=== PATIENT | female | born 1985 | race Caucasian/White ===

== ENCOUNTER → 2021-01-13 16:14 | Outpatient (CLI) | payer OTHER, BC, SELFPAY ==
--- NOTE | ~2021-01-13 | MM_ITS ---
EXAMINATION: MM screening albin BI w nicolas HISTORY: Screening TECHNIQUE: Craniocaudal and mediolateral oblique 3-D tomosynthesis images were obtained and synthetic 2-D images were generated. CAD analysis was submitted and interpreted. COMPARISON: No prior studies for comparison. BREAST PARENCHYMAL COMPOSITION: The breasts are heterogeneously dense, which may obscure small masses . FINDINGS: There is no evidence of suspicious mass, calcification, or architectural distortion to sugg est malignancy in either breast. There has been no suspicious interval change. IMPRESSION: 1. No mammographic evidence of malignancy. 2. Recommend routine screening mammography in one year. BI-RADS Category 1: Negative Reviewed, dictated and finalized at location A.
== END ==
PROVIDERS: PCP Family Medicine; Visit Provider Obstetrics & Gynecology
DX: Z12.31 Encounter for screening mammogram for malignant neoplasm of breast (principal)
CPT/HCPCS: 77063; 77067

== ENCOUNTER 2021-09-21 07:55 | Outpatient (CLI) | payer OTHER, BC, SELFPAY ==
--- NOTE | 2021-09-30 18:11 | WPDHOMESLEEP ---
Sleep Study - Home Unattended Date of Study: 09/21/21 <Angelica Vyas DO - Last Filed: 09/30/21 18:21> Ordering Provider: Nikole Chavarria NP <Angelica Vyas DO - Last Filed: 09/30/21 18:21> Interpreting Provider: Angelica Vyas DO <Angelica Vyas, DO - Last Filed: 09/30/21 18:21> Home Sleep Study Type: Watch PAT <Angelica Vyas, DO - Last Filed: 09/30/21 18:21> Height: 1.6 m <Angelica Vyas DO - Last Filed: 09/30/21 18:21> Weight: 83.007 kg <Angelica Vyas DO - Last Filed: 09/30/21 18:21> Body Mass Index: 32.4 <Angelica Vyas DO - Last Filed: 09/30/21 18:21> Neck Circumference (inches): 14.5 <Angelica Vyas DO - Last Filed: 09/30/21 18:21> [place]: 10 <Angelica Vyas DO - Last Filed: 09/30/21 18:21> Reason for Sleep Study The patient grinds her teeth and 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 Dentist is requesting an HSAT. <Angelica Vyas DO - Last Filed: 09/30/21 18:21> Sleep History The patient is a 35-year-old female with anxiety and hyperlipidemia that had her dentist request his home sleep test due to wearing out a lasting machine operator due to teeth grinding. The patient also has had unrefreshing sleep for the past 5 years. Both of her parents have sleep apnea. The patient denies awakening from sleep short of breath. She occasionally awakens at night with heartburn, belching or cough. She frequently snores and is occasionally loud enough that others complain. She constantly has trouble sleeping when she has a cold. She rarely wakes up gasping for air throughout the night. She rarely has breathing problems at night observed by others. She denies sweating excessively at night. He denies noticing heart palpitations or irregular heartbeats throughout the night. She denies falling asleep during the day and while driving. She rarely feels unable to move when waking up or falling asleep. She denies cataplexy and hypnagogic / hypnopompic hallucinations. She frequently has trouble at work due to sleepiness. She denies having night Rogers. She constantly has thoughts racing through her mind. She frequently feels sad or depressed. She constantly has anxiety. She occasionally notices parts of her body jerk. She rarely kicks during the night. She denies crawling and aching feelings in her legs as well as leg pain during the night. She constantly grinds her teeth during sleep and awakens with jaw pain in the morning. She is frequently bothered by pain during the day and rarely awakened by pain during the night. She occasionally wakes up feeling stiff in the morning with sore and achy muscles. She goes to bed at 10:30 p.m. on weekdays and between 11 p.m. and midnight on the weekends. He can take between 15 minutes and 60 minutes to fall asleep. She typically wakes up 2-4 times per night. When she awakens, she will use the restroom and or readjust her position. She can fall asleep within 5 minutes. She awakens at 5:30 a.m. on the weekdays and 7:00 a.m. on the weekends. He typically gets between 6 and 7 hours of sleep per night. She will lay in bed between 20 and 60 minutes after awakening in the morning. She currently lives with her and 2 children. She does not consume any caffeinated beverages within 2 hours of bedtime. She does not engage in physical exercise before bedtime. She will read before falling asleep. She does not take naps in the afternoon or the evening. She drinks 3 caffeinated beverages per day. She drinks 1 alcoholic beverage per day. She denies tobacco or recreational drug use. <Angelica Vyas DO - Last Filed: 09/30/21 18:21> [facility] Past Medical History Medical History: Medical History Anxiety Hyperlipidemia Vitamin D deficiency <Angelica Vyas, DO - Last Filed: 09/30/21 18:21> Family History Family
[2021-09-30 18:21] VITALS: BMI 32.4
== END 2021-09-22 11:14 | disposition home or self-care (01) ==
LOC: ANHCSM 07:56
PROVIDERS: PCP Family Medicine; Visit Provider Nurse Practitioner
DX: G47.10 Hypersomnia, unspecified (principal); G47.9 Sleep disorder, unspecified
CPT/HCPCS: 95800

== ENCOUNTER → 2021-10-13 02:55 | Outpatient (CLI) | payer OTHER, BC, SELFPAY ==
[2021-10-13 18:29] LABS: SARS-CoV-2 RNA PCR Positive
== END ==
PROVIDERS: PCP Family Medicine; Visit Provider Nurse Practitioner
DX: U07.1 COVID-19 (principal)
CPT/HCPCS: C9803; U0003; U0005

== ENCOUNTER 2021-10-15 08:35 | Outpatient (RCR) | payer OTHER, BC, SELFPAY ==
[2021-10-15 13:38] VITALS: BP 118/77; PULSE 90; RESP 18; TEMP 36.4; O2SAT 100
[2021-10-15] MEDS: diphenhydrAMINE HCl CAP 25 MG CAPSULE PO (13:40)
[2021-10-15] MEDS: FAMOTIDINE 20 MG TABLET PO (13:40)
[2021-10-15] MEDS: ACETAMINOPHEN 325 MG TABLET 650 MG PO (13:40)
[2021-10-15 15:06] VITALS: BP 128/81
--- NOTE | 2021-10-18 09:17 | PC.NURSE ---
Called Ms Rendon and she stated she is doing Much Better and outside of some fatigue she is doing well. No other questions at this time.
== END 2021-10-15 17:00 ==
LOC: AMCINF 08:35
PROVIDERS: PCP Nurse Practitioner Family; Visit Provider Internal Medicine Hematology & Oncology
DX: U07.1 COVID-19 (principal)
CPT/HCPCS: A9270; M0245; Q0245

== ENCOUNTER → 2021-10-22 00:50 | Outpatient (CLI) | payer OTHER, BC, SELFPAY ==
[2021-10-22 19:19] LABS: SARS-CoV-2 RNA PCR Positive
== END ==
PROVIDERS: PCP Nurse Practitioner Family; Visit Provider Internal Medicine Critical Care Medicine
DX: U07.1 COVID-19 (principal)
CPT/HCPCS: C9803; U0003; U0005

== ENCOUNTER 2021-10-25 07:41 | Outpatient (CLI) | payer OTHER, BC, SELFPAY ==
--- NOTE | 2021-11-08 20:55 | WPDSLEEPSTUD ---
Sleep Study Date of Study: 10/25/21 <Angelica Vyas, DO - Last Filed: 11/09/21 14:34> Ordering Provider: Nikole Chavarria NP <Angelica Vyas, DO - Last Filed: 11/09/21 14:34> Interpreting Physician: Angelica Vyas DO <Angelica Vyas, DO - Last Filed: 11/09/21 14:34> Sleep Study Type: Polysomnogram <Angelica Vyas DO - Last Filed: 11/09/21 14:34> Height: 1.6 m <Angelica Vyas DO - Last Filed: 11/09/21 14:34> Weight: 81.647 kg <Angelica Vyas DO - Last Filed: 11/09/21 14:34> Body Mass Index: 31.8 <Angelica Vyas DO - Last Filed: 11/09/21 14:34> Neck Circumference (inches): 15 <Angelica Vyas DO - Last Filed: 11/09/21 14:34> [place]: 11 <Angelica Vyas DO - Last Filed: 11/09/21 14:34> Reason for Sleep Study The patient had an HSAT on 09/21/2021 that showed an AHI of 3.0 and an RDI of 11.6. The patient had worn through a nightguard quicker than normal so it was recommended that she have a sleep study. Due to the discrepancy in the AHI and RDI on the HSAT, it was recommended that she have an in-lab study. 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 The patient also has had unrefreshing sleep for the past 5 years. Both of her parents have sleep apnea. The patient denies awakening from sleep short of breath. She occasionally awakens at night with heartburn, belching or cough. She frequently snores and is occasionally loud enough that others complain. She constantly has trouble sleeping when she has a cold. She rarely wakes up gasping for air throughout the night. She rarely has breathing problems at night observed by others. She denies sweating excessively at night. He denies noticing heart palpitations or irregular heartbeats throughout the night. She denies falling asleep during the day and while driving. She rarely feels unable to move when waking up or falling asleep. She denies cataplexy and hypnagogic / hypnopompic hallucinations. She frequently has trouble at work due to sleepiness. She denies having night Rogers. She constantly has thoughts racing through her mind. She frequently feels sad or depressed. She constantly has anxiety. She occasionally notices parts of her body jerk. She rarely kicks during the night. She denies crawling and aching feelings in her legs as well as leg pain during the night. She constantly grinds her teeth during sleep and awakens with jaw pain in the morning. She is frequently bothered by pain during the day and rarely awakened by pain during the night. She occasionally wakes up feeling stiff in the morning with sore and achy muscles. She goes to bed at 10:30 p.m. on weekdays and between 11 p.m. and midnight on the weekends. He can take between 15 minutes and 60 minutes to fall asleep. She typically wakes up 2-4 times per night. When she awakens, she will use the restroom and or readjust her position. She can fall asleep within 5 minutes. She awakens at 5:30 a.m. on the weekdays and 7:00 a.m. on the weekends. He typically gets between 6 and 7 hours of sleep per night. She will lay in bed between 20 and 60 minutes after awakening in the morning. She currently lives with her and 2 children. She does not consume any caffeinated beverages within 2 hours of bedtime. She does not engage in physical exercise before bedtime. She will read before falling asleep. She does not take naps in the afternoon or the evening. She drinks 3 caffeinated beverages per day. She drinks 1 alcoholic beverage per day. She denies tobacco or recreational drug use. <Angelica Vyas, - Last Filed: 11/09/21 14:34> [facility] Past Medical History Medical History: Medical History (Reviewed
[2021-11-09 14:23] VITALS: BMI 31.8
== END 2021-10-26 06:31 | disposition home or self-care (01) ==
LOC: ANHCSM 07:42
PROVIDERS: PCP Nurse Practitioner Family; Visit Provider Nurse Practitioner
DX: G47.10 Hypersomnia, unspecified (principal); G47.9 Sleep disorder, unspecified
CPT/HCPCS: 95810

== ENCOUNTER → 2022-05-20 10:30 | Outpatient (CLI) | payer OTHER, BC, SELFPAY ==
--- NOTE | ~2022-05-20 | MM_ITS ---
EXAMINATION: MM screening albin BI w nicolas HISTORY: Screening TECHNIQUE: Craniocaudal and mediolateral oblique 3-D tomosynthesis images were obtained and synthetic 2-D images were generated. CAD analysis was submitted and interpreted. COMPARISON: 01/13/2021 BREAST PARENCHYMAL COMPOSITION: There are scattered areas of fibroglandular density. FINDINGS: There is no evidence of suspicious mass, calcification, or architectural distortion to sugg est malignancy in either breast. There has been no suspicious interval change. IMPRESSION: 1. No mammographic evidence of malignancy. 2. Recommend routine screening mammography in one year. BI-RADS Category 1: Negative Reviewed, dictated and finalized at location A.
== END ==
PROVIDERS: PCP Family Medicine; Visit Provider Obstetrics & Gynecology
DX: Z12.31 Encounter for screening mammogram for malignant neoplasm of breast (principal)
CPT/HCPCS: 77063; 77067

== ENCOUNTER → 2022-12-29 15:45 | Outpatient (CLI) | payer OTHER, BC, SELFPAY ==
--- NOTE | ~2022-12-29 | CT_ITS ---
EXAMINATION: CT brain wo con DATE: 12/29/2022 16:00 INDICATION: Headache. TECHNIQUE: Computed tomography (CT) of the head was performed without intravenous contrast. The mA wa s adjusted according to patient size. Iterative reconstruction technique was employed. The dose-lengt h product was 645.69 mGy-cm. COMPARISON: None FINDINGS: There is no intracranial hemorrhage or acute infarction. There is a 1.7 x 0.4 x 0.6 cm mass of fat inferior to the splenium of the corpus callosum. The ventricles are normal in size. The orbit s are normal. The paranasal sinuses are clear. The mastoid air cells are normal. IMPRESSION: 1. 1.7 x 0.4 x 0.6 cm mass of fat inferior to the splenium of the corpus callosum, which may be a lip morenita or a dermoid. Reviewed, dictated and finalized at location A. IT REPORT CHECKER IMPRESSION: 1. 1.7 x 0.4 x 0.6 cm mass of fat inferior to the splenium of the corpus callos um, which may be a lipoma or a dermoid.
== END ==
PROVIDERS: PCP Nurse Practitioner; Visit Provider Nurse Practitioner
DX: R51.9 Headache, unspecified (principal)
CPT/HCPCS: 70450

== ENCOUNTER 2023-05-20 13:18 | Emergency (ER) | payer OTHER, SELFPAY ==
--- NOTE | ~2023-05-20 | XR_ITS ---
XR chest 2V 05/20/2023 13:43 Indication: Persistent cough Procedure: 2 view chest Comparison: 09/17/2018 Findings: There is right upper lobe airspace disease, compatible with pneumonia. Heart size normal. L eft lung clear. No pleural effusion or pneumothorax. Impression: 1: Right upper lobe pneumonia. Reviewed, dictated and finalized at location A. Impression: 1: Right upper lobe pneumonia.
[2023-05-20 13:23] VITALS: BP 132/87; PULSE 102; RESP 18; TEMP 37.4; O2SAT 100
--- NOTE | 2023-05-20 13:29 | ED.URI ---
HPI - URI/Sore Throat General Chief Complaint: Upper Respiratory Infection Stated Complaint: Sore Throat/Cough Time Seen by Provider: 05/20/23 13:32 Source: patient, RN notes reviewed and old records reviewed Mode of arrival: ambulatory Limitations: no limitations History of Present Illness HPI Narrative: 37 year old female who presents to [facility] care with complaints of cough with expectoration of greenish tinged mucous for the past 1 week. Patient reports that she called her PCP and was told to take cold and flu medication such as DayQuil, Benadryl and also she was ordered inhaler. Patient reports that her chest is tender from all the coughing has history of Bronchitis in the past. Patient reports that she has had highest temperature of 99.7F. MD elicited complaint: cough, rhinorrhea and nasal congestion Pertinent past history: other (bronchitis) Onset (ago): week(s) (1) Description of mucous: green Able to tolerate fluids by mouth: Yes Exacerbating factors: exertion Treatments prior to arrival: cold medicine and other (inhaler, Benadryl) Related Data Home Medications Medication Instructions Recorded Confirmed fluticasone propionate 50 1 spray intranasal DAILY 01/03/22 05/20/23 mcg/actuation nasal spray,suspension (Flonase Allergy Relief) B-Complex W/Vitamin B-12 05/20/23 [id number]-rer-[id number] 200 mcg-vit K 100 cap PO 05/20/23 mcg-lycop 500 [id number] capsule (Daily Multivitamin) Allergies Allergy/AdvReac Type Severity Reaction Status Date / Time Sulfa (Sulfonamide Allergy Unknown Unknown Verified 05/20/23 13:42 Antibiotics) Review of Systems Review of Systems: CONSTITUTIONAL: Reports malaise, no chills, sweats,reports low grade fever. EYES: Denies visual changes, redness, or discharge. ENT: Reports rhinorrhea, congestion,no sinus pain, otalgia or sore throat. CARDIOVASCULAR: Denies chest pain, palpitations, or edema.states RESPIRATORY: Reports continuous cough.? Denies acute dyspnea. GASTROINTESTINAL: Denies abdominal pain, nausea, vomiting, diarrhea SKIN: Denies rash or itching. MUSCULOSKELETAL: Denies myalgia. NEUROLOGIC: Denies headache. All systems reviewed & are unremarkable except as noted in HPI and below PMFSH Past Medical History Medical History Anxiety Encounter for gynecological examination Hyperlipidemia Vitamin D deficiency Surgical History Surgical History H/O gynecological procedure (~09/2009) Laparoscopy; Stage I endometriosis, dysmenorrhea, pelvic pain History of colposcopy Mirena iud insertion - 10/02/2014 Mirena iud removal / reinsertion - 09/09/2019 History of gynecological procedure History of tonsillectomy Family History Family History Mother Depression Family history of gynecological problem Family history of arthritis Father Hypertension Family history of arthritis Daughter Congenital hip dysplasia Torticollis Grandparent Breast cancer Social History Social History Smoking status: Never smoker Alcohol intake: current Alcohol use details: socially Substance use: never Lack of Transportation: No Lack of Food: Never True Current Housing: I Have Housing Concerned About Future Housing: No Difficulty Paying Gas/Electric Bills: No Difficulty Paying for Meds: No Currently Unemployed: No Education: Master's Degree or Higher Difficulty w/ Childcare or Family Care: No Living arrangements: with family Gender identity (if verbalized by the patient): Female Spiritual care concerns: No Comments At time of signature, agree with nursing past medical, surgical, social and family history. There is no relevant family history pertinent to the presenting complaint Exam Narrative: GENERAL
== END 2023-05-20 14:14 | disposition home or self-care (01) ==
PROVIDERS: Emergency Provider Registered Nurse; PCP Family Medicine
DX: J18.1 Lobar pneumonia, unspecified organism (principal); E78.5 Hyperlipidemia, unspecified; F41.9 Anxiety disorder, unspecified
CPT/HCPCS: 71046; 99213; G0463

== ENCOUNTER 2023-09-24 09:38 | Emergency (ER) | payer OTHER, BC, SELFPAY ==
[2023-09-24 09:44] VITALS: BP 120/80; PULSE 90; RESP 18; TEMP 36.6; O2SAT 97
--- NOTE | 2023-09-24 09:56 | ED.URI ---
HPI - URI/Sore Throat General Chief Complaint: Upper Respiratory Infection Stated Complaint: Sinus Pain/Ear/Throat/Left Eye Source: patient and RN notes reviewed History of Present Illness HPI Narrative: 37 yo F presents to urgent care with complaints of congestion, right ear pain, sore throat, since Monday. pt states she woke up this morning with left eye pain, matting, and drainage. Pt reports fuzzy vision in the left eye but states she can see. Pt states she was treated for a sinus infection and ear infection a couple months ago and has been using antihistamines and nasal spray at home without relief. Pt denies any fevers, chills, vomiting, chest pain, or SOB. Related Data Home Medications Medication Instructions Recorded Confirmed fluticasone propionate 50 1 spray intranasal DAILY 01/03/22 07/19/23 mcg/actuation nasal spray,suspension (Flonase Allergy Relief) B-Complex W/Vitamin B-12 05/20/23 07/19/23 [id number]-kic-KD 200 mcg-vit K 100 cap PO 05/20/23 07/19/23 mcg-lycop 500 mgo-[id number]-Q01 capsule (Daily Multivitamin) buspirone 5 mg tablet 5 mg PO BID PRN 07/19/23 07/19/23 xsvmkqjtpe-csvulbt-pywxvdkm 50 1 cap PO Q6H PRN 07/19/23 07/19/23 mg-325 mg-40 mg capsule Allergies Allergy/AdvReac Type Severity Reaction Status Date / Time Sulfa (Sulfonamide Allergy Unknown Unknown Verified 07/19/23 16:07 Antibiotics) Review of Systems Review of Systems: CONSTITUTIONAL: Denies fever, chills, or sweats. CARDIOVASCULAR: Denies chest pain, palpitations, or edema. RESPIRATORY: Denies cough or dyspnea. GASTROINTESTINAL: Denies abdominal pain, nausea, vomiting, or diarrhea. GENITOURINARY: Denies dysuria or hematuria. SKIN: Denies rash or itching. MUSCULOSKELETAL: Denies back pain, joint pain, or myalgia. NEUROLOGIC: Denies headache, numbness, or weakness. Pertinent positives per HPI. [facility] Past Medical History Medical History (Updated 09/24/23 @ 10:10 by Anastasiia Enriquez, SAM) Anxiety Chronic headache Ear pain Encounter for gynecological examination Hyperlipidemia Neck pain Vitamin D deficiency Surgical History Surgical History H/O gynecological procedure (~09/2009) Laparoscopy; Stage I endometriosis, dysmenorrhea, pelvic pain History of colposcopy Mirena iud insertion - 10/02/2014 Mirena iud removal / reinsertion - 09/09/2019 History of gynecological procedure History of tonsillectomy Family History Family History Mother Depression Family history of gynecological problem Family history of arthritis Father Hypertension Family history of arthritis Daughter Congenital hip dysplasia Torticollis Grandparent Breast cancer Social History Social History Smoking status: Never smoker Alcohol intake: current Alcohol use details: socially Substance use: never Lack of Transportation: No Lack of Food: Never True Current Housing: I Have Housing Concerned About Future Housing: No Difficulty Paying Gas/Electric Bills: No Difficulty Paying for Meds: No Currently Unemployed: No Education: Master's Degree or Higher Difficulty w/ Childcare or Family Care: No Living arrangements: with family Gender identity (if verbalized by the patient): Female Spiritual care concerns: No Comments At the time of my signature, I reviewed and agree with the nursing past medical, surgical, social, and family history. There is no relevant family history pertinent to the patient complaint. Exam Narrative: GENERAL: This is a well-nourished, well-developed patient, in no apparent distress. HEAD: normocephalic, atraumatic. EYES: Left sclera erythremic. Left upper lid slightly edematous, dried drainage noted to left lashes. No erythema, wound, or abrasion surrounding the left orbit. Slight te
== END 2023-09-24 10:18 | disposition home or self-care (01) ==
PROVIDERS: Emergency Provider Nurse Practitioner Family; PCP Family Medicine
DX: J32.9 Chronic sinusitis, unspecified (principal); H05.012 Cellulitis of left orbit; H10.9 Unspecified conjunctivitis; E78.5 Hyperlipidemia, unspecified; F41.9 Anxiety disorder, unspecified
CPT/HCPCS: 99213; G0463

== ENCOUNTER → 2023-10-03 12:34 | Outpatient (CLI) | payer OTHER, BC, SELFPAY ==
--- NOTE | ~2023-10-03 | CT_ITS ---
EXAMINATION: CT sinus wo con DATE: 10/03/2023 12:50 INDICATION: Cellulitis. TECHNIQUE: Computed tomography (CT) of the paranasal sinuses was performed without intravenous contra st. The dose-length product was 400.44 mGy-cm. Automated exposure control and iterative reconstructio n technique were employed. COMPARISON: CT dated 12/29/2022 FINDINGS: There is a mucous retention cyst of the left maxillary sinus. No significant nasal septal d eviation. The ostiomeatal units are patent. Minimal mucosal thickening of the right maxillary antrum. No air-fluid levels. No significant mucoperiosteal reaction. Mastoids are pneumatized. IMPRESSION: 1. Mild sinus disease. Reviewed, dictated and finalized at location L. LEUM TILE LAYER IMPRESSION: 1. Mild sinus disease.
== END ==
PROVIDERS: PCP Otolaryngology; Visit Provider Nurse Practitioner Family
DX: H05.019 Cellulitis of unspecified orbit (principal); J32.9 Chronic sinusitis, unspecified
CPT/HCPCS: 70486

== ENCOUNTER 2024-01-12 09:06 | Emergency (ER) | payer OTHER, BC, SELFPAY ==
[2024-01-12 09:12] VITALS: BP 118/76; PULSE 91; RESP 18; TEMP 36.2; O2SAT 99
--- NOTE | 2024-01-12 09:49 | ED.URI ---
HPI - URI/Sore Throat General Chief Complaint: Upper Respiratory Infection Stated Complaint: throat/cough/fever Source: patient and RN notes reviewed Mode of arrival: ambulatory Limitations: no limitations History of Present Illness HPI Narrative: 38-year-old female presented for complaint of painful cough, sore throat, fever and body aches. Onset 3 days. Endorses fever up to 103. Taking Tylenol, ibuprofen and vitamins. Denies shortness of breath, wheezing, nausea, vomiting, diarrhea or lethargy. MD elicited complaint: cough Related Data Home Medications Medication Instructions Recorded Confirmed buspirone 5 mg tablet 5 mg PO BID PRN Anxiety 07/19/23 01/12/24 xgnwanbojz-muolgfa-rauhscrk 50 1 cap PO Q6H PRN migraines 07/19/23 01/12/24 mg-325 mg-40 mg capsule Allergies Allergy/AdvReac Type Severity Reaction Status Date / Time Sulfa (Sulfonamide Allergy Unknown Unknown Verified 01/12/24 09:24 Antibiotics) Review of Systems Review of Systems: CONSTITUTIONAL: Endorses malaise, chills, sweats, fever EYES: Denies visual changes, redness, or discharge ENT: Reports rhinorrhea, congestion, sore throat CARDIOVASCULAR: Denies chest pain, palpitations, edema RESPIRATORY: Reports cough, post nasal drainage. Denies dyspnea GASTROINTESTINAL: Denies abdominal pain, nausea, vomiting, diarrhea SKIN: Denies rash or itching MUSCULOSKELETAL: Endorses myalgia PMFSH Past Medical History Medical History Anxiety Chronic headache Ear pain Encounter for gynecological examination Hyperlipidemia Neck pain Orbital cellulitis Vitamin D deficiency Surgical History Surgical History H/O gynecological procedure (~09/2009) Laparoscopy; Stage I endometriosis, dysmenorrhea, pelvic pain History of colposcopy Mirena iud insertion - 10/02/2014 Mirena iud removal / reinsertion - 09/09/2019 History of gynecological procedure History of tonsillectomy Family History Family History Mother Depression Family history of gynecological problem Family history of arthritis Father Hypertension Family history of arthritis Daughter Congenital hip dysplasia Torticollis Grandparent Breast cancer Social History Social History Smoking status: Never smoker Alcohol intake: current Alcohol use details: socially Substance use: never Lack of Transportation: No Lack of Food: Never True Current Housing: I Have Housing Concerned About Future Housing: No Difficulty Paying Gas/Electric Bills: No Difficulty Paying for Meds: No Currently Unemployed: No Education: Master's Degree or Higher Difficulty w/ Childcare or Family Care: No Living arrangements: with family Gender identity (if verbalized by the patient): Female Spiritual care concerns: No Exam Narrative: GENERAL: Ill-appearing, nontoxic EYES: PERRLA, conjunctivae clear ENT: Mucous membranes moist. TMs pearly bethae with dull light reflex bilaterally; no tragal tenderness. Oropharynx erythematous without lesions or exudate, tonsils absent; no drooling, no hoarseness, no trismus, uvula midline. No tripod positioning, muffled voice, soft palate or pharyngeal wall bulging NECK: Supple. No lymphadenopathy CHEST: Clear to auscultation, breath sounds equal. No wheezing, rhonchi, rales, or stridor. No respiratory distress, speaks in full sentences. HEART: Regular rate and rhythm. No murmur heard. SKIN: Warm, dry, no rash. NEURO: Alert and oriented x3. PSYCH: Normal mood and affect Course Course Emergency Course: Patient is aware of diagnosis, understands and agrees to treatment plan. Anticipatory guidance given. Patient agrees to follow-up as directed and is aware of reasons to seek care at the emergency department. Por
== END 2024-01-12 10:00 | disposition home or self-care (01) ==
PROVIDERS: Emergency Provider Nurse Practitioner Family; PCP Family Medicine
DX: J10.1 Influenza due to other identified influenza virus with other respiratory manifestations (principal); Z20.822 Contact with and (suspected) exposure to COVID-19; E78.5 Hyperlipidemia, unspecified; F41.9 Anxiety disorder, unspecified
CPT/HCPCS: 87081; 87426; 87804; 87880; 99213; G0463

== ENCOUNTER 2024-02-19 16:24 | Outpatient (CLI) | payer OTHER, BC, SELFPAY ==
--- NOTE | ~2024-02-19 | MM_ITS ---
EXAMINATION: MM screening albin BI w nicolas HISTORY: Screening mammogram TECHNIQUE: Craniocaudal and mediolateral oblique 3-D tomosynthesis images were obtained and synthetic 2-D images were generated. CAD analysis was submitted and interpreted. COMPARISON: 05/20/2022, 01/13/2021 bilateral screening mammogram examinations BREAST PARENCHYMAL COMPOSITION: The breasts are heterogeneously dense, which may obscure small masses . FINDINGS: Benign-appearing stable intramammary lymph node in the posterior upper inner quadrant of th e right breast. A few scattered bilateral punctate benign microcalcifications are noted. There is no evidence of suspicious mass, calcification, or architectural distortion to suggest malignancy in eith er breast. There has been no suspicious interval change. IMPRESSION: 1. No mammographic evidence of malignancy. 2. Recommend routine screening mammography in one year. BI-RADS Category 2: Benign finding(s). Reviewed, dictated and finalized at location A.
== END 2024-02-19 16:25 ==
LOC: MICIMG 16:24
PROVIDERS: PCP Obstetrics & Gynecology; Visit Provider Obstetrics & Gynecology
DX: Z12.31 Encounter for screening mammogram for malignant neoplasm of breast (principal)
CPT/HCPCS: 77063; 77067

== ENCOUNTER 2024-02-23 09:51 | Emergency (ER) | payer OTHER, BC, SELFPAY ==
[2024-02-23 09:57] VITALS: BP 111/76; PULSE 107; RESP 16; TEMP 37.1; O2SAT 98
--- NOTE | 2024-02-23 10:11 | ED.URI ---
HPI - URI/Sore Throat General Chief Complaint: Upper Respiratory Infection Stated Complaint: sore throat Time Seen by Provider: 02/23/24 10:11 Source: patient, RN notes reviewed and old records reviewed Mode of arrival: ambulatory Limitations: no limitations History of Present Illness HPI Narrative: 38-year-old female presents to the [facility] with complaints of a sore throat since yesterday. Reports a fever of 101 yesterday. States that when she swallows it feels like glass. States that her child tested positive last week for strep throat No treatment prior to arrival Related Data Home Medications Medication Instructions Recorded Confirmed buspirone 5 mg tablet 5 mg PO BID PRN Anxiety 07/19/23 01/12/24 [id number] 50 1 cap PO Q6H PRN migraines 07/19/23 01/12/24 mg-325 mg-40 mg capsule Iud 02/23/24 Allergies Allergy/AdvReac Type Severity Reaction Status Date / Time Sulfa (Sulfonamide Allergy Unknown Unknown Verified 02/23/24 09:55 Antibiotics) Review of Systems Review of Systems: All systems reviewed & are unremarkable except as noted in HPI and below Constitutional: Constitutional: Reports no additional constitutional complaints Eyes: Eyes: Reports no additional eye complaints ENT: Reports as per HPI and Reports sore throat Cardiovascular: Cardiovascular: Reports no additional cardiovascular complaints, Denies chest pain and Denies dyspnea Respiratory: Respiratory: Reports no additional respiratory complaints, Denies chest congestion, Denies cough and Denies dyspnea Gastrointestinal: Gastrointestinal: Reports no additional gastrointestinal complaints, Denies abdominal pain, Denies nausea and Denies vomiting Musculoskeletal: Musculoskeletal: Reports no additional musculoskeletal complaints Integumentary/Breasts: Skin/Breast: Reports system reviewed and no additional complaints, except as docu Neurologic: Reports system reviewed and no additional complaints, except as documented Psychiatric: Psychiatric: Reports no additional psychiatric complaints Allergic/Immunologic: Allergic/Immunologic: Reports no additional allergic/immunologic complaints PMFSH Past Medical History Medical History Anxiety Chronic headache Ear pain Encounter for gynecological examination Hyperlipidemia Neck pain Orbital cellulitis Vitamin D deficiency Surgical History Surgical History H/O gynecological procedure (~09/2009) Laparoscopy; Stage I endometriosis, dysmenorrhea, pelvic pain History of colposcopy Mirena iud insertion - 10/02/2014 Mirena iud removal / reinsertion - 09/09/2019 History of gynecological procedure History of tonsillectomy Family History Family History Mother Depression Family history of gynecological problem Family history of arthritis Father Hypertension Family history of arthritis Daughter Congenital hip dysplasia Torticollis Grandparent Breast cancer Social History Social History Smoking status: Never smoker Alcohol intake: current Alcohol use details: socially Substance use: never Lack of Transportation: No Lack of Food: Never True Current Housing: I Have Housing Concerned About Future Housing: No Difficulty Paying Gas/Electric Bills: No Difficulty Paying for Meds: No Currently Unemployed: No Education: Master's Degree or Higher Difficulty w/ Childcare or Family Care: No Living arrangements: with family Gender identity (if verbalized by the patient): Female Spiritual care concerns: No Comments At the time of my signature, I reviewed and agree with the nursing past medical, surgical, social, and family history. There is no relevant family history pertinent to the patient complaint. Exam Const: Gene
== END 2024-02-23 10:24 | disposition home or self-care (01) ==
PROVIDERS: Emergency Provider Nurse Practitioner; PCP Family Medicine
DX: J02.0 Streptococcal pharyngitis (principal); E78.5 Hyperlipidemia, unspecified; F41.9 Anxiety disorder, unspecified
CPT/HCPCS: 87880; 99213; G0463

== ENCOUNTER 2025-03-18 15:59 | Outpatient (CLI) | payer OTHER, BC, SELFPAY ==
--- NOTE | ~2025-03-18 | MM_ITS ---
EXAMINATION: MM screening albin BI w nicolas HISTORY: Screening TECHNIQUE: Craniocaudal and mediolateral oblique 3-D tomosynthesis images were obtained and synthetic 2-D images were generated. CAD analysis was submitted and interpreted. COMPARISON: Comparison to multiple prior studies sequentially, with oldest reviewed study dated 01/13. BREAST PARENCHYMAL COMPOSITION: Not dense: There are scattered areas of fibroglandular density. FINDINGS: There is a new mass in the upper outer quadrant of the right breast, middle third. The left breast is stable without evidence for malignancy. IMPRESSION: 1. New right breast mass. 2. Additional mammographic views and possible breast ultrasound are recommended. BI-RADS Category 0: Incomplete: Needs additional imaging evaluation. Reviewed, dictated and finalized at location [facility]. IMPRESSION: 1. New right breast mass. 2. Additional mammographic views and possible breast ultrasound are recommended . BI-RADS Category 0: Incomplete: Needs additional imaging evaluation.
== END 2025-03-18 16:00 | disposition home or self-care (01) ==
LOC: MICIMG 16:00
PROVIDERS: PCP Family Medicine; Visit Provider Obstetrics & Gynecology
DX: Z12.31 Encounter for screening mammogram for malignant neoplasm of breast (principal); R92.8 Other abnormal and inconclusive findings on diagnostic imaging of breast
CPT/HCPCS: 77063; 77067

== ENCOUNTER 2025-04-21 13:13 | Outpatient (CLI) | payer OTHER, BC, SELFPAY ==
--- NOTE | ~2025-04-21 | MMUS_ITS ---
EXAMINATION: MM diagnostic albin RT w nicolas, US breast RT limited HISTORY: Right breast mass TECHNIQUE: Additional 3-D tomosynthesis images of the right breast were performed and synthetic 2-D i mages were generated. CAD analysis was submitted and interpreted. High resolution limited right breas t ultrasound was performed. COMPARISON: 04/21/2025 BREAST PARENCHYMAL COMPOSITION:Not Dense. There are scattered areas of fibroglandular density. FINDINGS: MAMMOGRAPHIC FINDINGS: Spot compression views demonstrate possible persistent low-density 4 mm mass at the upper, outer righ t breast. ULTRASOUND: At the 10:00 position right breast, 2 cm from the nipple, there is a 5 mm simple anechoic cyst. This correlates with the mammographic finding. IMPRESSION: No evidence for malignancy. 5 mm simple right breast cyst. BI-RADS Category 2: Benign finding(s). Reviewed, dictated and finalized at [facility]. IMPRESSION: No evidence for malignancy. 5 mm simple right breast cyst. BI-RADS Category 2: Benign finding(s).
== END 2025-04-21 13:14 | disposition home or self-care (01) ==
PROVIDERS: PCP Family Medicine; Visit Provider Obstetrics & Gynecology
DX: N63.10 Unspecified lump in the right breast, unspecified quadrant (principal); N60.01 Solitary cyst of right breast
CPT/HCPCS: 76642; 77061; 77065; G0279